=== PATIENT | female | born 1950 | race Caucasian/White ===

== ENCOUNTER → 2017-01-27 | Outpatient (CLI) | payer MEDICARE, BC ==
[~2017-01-27] MED LIST: ASPIRIN ENTERI325 MG PO; LOVASTATIN40 MG PO
--- NOTE | 2017-01-27 13:27 | Diagnostic Imaging Report ---
PROCEDURE: X-RAY CHEST, TWO VIEWS COMPARISON: 07/11/16 INDICATIONS: SHORTNESS OF BREATH FINDINGS: LUNGS: No consolidations or edema. PLEURA: No effusions or pneumothorax. HEART \T\ MEDIASTINUM: The heart is within normal size-limits. Aorta is tortuous. BONES \T\ SOFT TISSUES: No acute findings. Degenerative changes of the thoracic spine. CONCLUSION: No acute thoracic abnormality. Dictated by: Shane Oconnell M.D. on 01/27/2017 at 13:36 Electronically approved by: Shane Oconnell M.D. on 01/27/2017 at 13:36
== END ==
LOC: RAD 12:58
DX: R06.02 Shortness of breath (principal)
CPT/HCPCS: 71020

== ENCOUNTER → 2017-02-20 | Outpatient (CLI) | payer MEDICARE, BC ==
--- NOTE | 2017-02-20 16:51 | Diagnostic Imaging Report ---
PROCEDURE:X-RAY RIGHT HEEL COMPARISON:None. INDICATIONS:SWELLING AND PAIN IN RIGHT HEEL FINDINGS: Normal mineralization. No acute fracture or dislocation. Joint spaces are within normal limits. Small dorsal and plantar calcaneal enthesophytes. Mild soft tissue swelling of the plantar heel. CONCLUSION: No acute osseous abnormality. Mild soft tissue swelling of the plantar hindfoot. Dictated by: Shane Oconnell M.D. on 02/20/2017 at 16:59 Electronically approved by: Shane Oconnell M.D. on 02/20/2017 at 16:59
== END ==
LOC: RAD 16:02
DX: M79.89 Other specified soft tissue disorders (principal); S90.821A Blister (nonthermal), right foot, initial encounter

== ENCOUNTER → 2017-04-25 | Day surgery (SDC) | payer MEDICARE, BC ==
[2017-04-24 11:14] LABS: BASOPHILS % 0.4 % (0.0-1.0); EOSINOPHILS # (AUTO) 0.1 (0.0-0.4); EOSINOPHILS % 1.8 % (0.0-6.0); HEMATOCRIT 42.3 % (34.2-44.1); LYMPHOCYTES # (AUTO) 1.5 (1.0-3.2); LYMPHOCYTES % 21.8 % (18.0-39.1); MEAN CORPUSCULAR HEMOGLOBIN 29.4 pg (28-32); MEAN CORPUSCULAR HGB CONC 33.1 g/dL (31-35); MEAN CORPUSCULAR VOLUME 88.7 fL (81-99); MONOCYTES # (AUTO) 0.6 (0.2-0.8); MONOCYTES % 8.9 % (4.4-11.3); NEUTROPHILS # (AUTO) 4.7 (2.1-6.9); NEUTROPHILS % 66.8 % (38.7-80.0); PLATELET COUNT 210 x10e3/uL (140-360); RED BLOOD COUNT 4.77 x10e6/uL (3.6-5.1); RED CELL DISTRIBUTION WIDTH 14.2 % (11.7-14.4)
--- NOTE | 2017-04-24 12:03 | Diagnostic Imaging Report ---
PROCEDURE: Frontal and lateral views of the chest. COMPARISON: Chest 2 views 01/27/2017. INDICATIONS: PREOPERATIVE CHEST XRAY FOR FOOT SURGERY FINDINGS: Lines/tubes: None. Lungs: The lungs are well inflated and clear. There is no evidence of pneumonia or pulmonary edema. Pleura: There is no pleural effusion or pneumothorax. Heart and mediastinum: The heart and the mediastinum are normal. Bones: No acute bony abnormality. Degenerative changes of the thoracic spine. IMPRESSION: No acute radiographic abnormality. Dictated by: Sergio Vyas M.D. on 04/24/2017 at 12:03 Electronically approved by: Sergio Vyas M.D. on 04/24/2017 at 12:03
[~2017-04-25] MED LIST changes: +BUPIVACAINE HCL 0.5% INJ 30 ML VIAL INJ ONE; +CEFAZOLIN SOD 2 GM/D5W 50ML 50 ML IV ONE; +DEXAMETHASONE SOD PHOS INJ 4 MG/ML VIAL ONE; +EPHEDRINE SULFATE INJ 50 MG/10 ML SYR ONE; +FENTANYL CITRATE/PF 100MCG/2 ML INJ ONE; +GLYCOPYRROLATE INJ 1MG/ 5 ML SYR ONE; +KETOROLAC TROMETHAMINE 30 MG/ML VIAL ONE; +LEXAPRO10 MG PO; +LIDOCAINE HCL 2% LOCAL INJ 5 ML SDV VIAL INJ ONE; +MIDAZOLAM HCL 2 MG/2 ML VIAL ONE; +MORPHINE SULFATE 2 MG/ML SYR ONE; +NEOSTIGMINE 1 MG/ML 10ML VIAL ONE; +NEOSTIGMINE 5 MG/5ML SYR ONE; +ONDANSETRON HCL INJ 2 MG/ML VIAL ONE; +PROPOFOL IV EMULSION 10 MG/ML 20 ML VIAL ONE; +ROCURONIUM BROMIDE 10 MG/ML 5ML VIAL ONE; +SEVOFLURANE INHAL SOLN 250 ML PEN BTL ONE; +WELLBUTRIN SR150 MG
--- OUTSIDE RECORDS SUMMARY | 2017-04-25 06:32 | XMS REPORT ---
Author [facility] Address Unknown Phone Unavailable Care Team Providers Care Luster Applicator Name Role Phone GORDON NORTON Unavailable Unavailable AB RAMIREZ Unavailable Unavailable Problems This patient has no known problems. Allergies, Adverse Reactions, Alerts This patient has no known allergies or adverse reactions. Medications This patient has no known medications. Results Test Description Test Time Test Comments Text Results Atomic Results Result Comments CHEST 2 VIEWS [place] [address] Patient Name: SAEED ORTEGA MR #: [id number] : 1950 Age/Sex: 66/F Req #: [id number] Adm Physician: Ordered by: MARIE PIERRE MD Report #: [id number] Location: OR Room/Bed: Procedure: [id number] DX/CHEST 2 VIEWS Exam Date: 04/24/17 Exam Time: 1145 REPORT STATUS: Signed PROCEDURE: Frontal and lateral views of the chest. COMPARISON: Chest 2 views 01/27/2017. INDICATIONS: PREOPERATIVE CHEST XRAY FOR FOOT SURGERY FINDINGS: Lines/tubes: None. Lungs: The lungs are well inflated and clear. There is no evidence of pneumonia or pulmonary edema. Pleura: There is no pleural effusion or pneumothorax. Heart and mediastinum: The heart and the mediastinum are normal. Bones: No acute bony abnormality. Degenerative changes of the thoracic spine. IMPRESSION: No acute radiographic abnormality. Dictated by: Chuck Biswas M.D. on 04/24/2017 at 12:03 Electronically approved by: Chuck Biswas M.D. on 04/24/2017 at 12:03 Dictated By: CHUCK BISWAS MD 120 COPY TO: MARIE PIERRE MD HEEL RT [place] [address] Patient Name: SAEED ORTEGA MR #: [id number] : 1950 Age/Sex: 66/F Req #: [id number] Adm Physician: Ordered by: AB RAMIREZ MD Report #: [id number] Location: [facility] Room/Bed: Procedure: [id number] DX/ HEEL RT Exam Date: 02/20/17 Exam Time: 1610 REPORT STATUS: Signed PROCEDURE: X-RAY RIGHT HEEL COMPARISON: None. INDICATIONS: SWELLING AND PAIN IN RIGHT HEEL FINDINGS: Normal mineralization. No acute fracture or dislocation. Joint spaces are within normal limits. Small dorsal and plantar calcaneal enthesophytes. Mild soft tissue swelling of the plantar heel. CONCLUSION: No acute osseous abnormality. Mild soft tissue swelling of the plantar hindfoot. Dictated by: Shane Johnson M.D. on 02/20/2017 at 16:59 Electronically approved by: Shane Johnson M.D. on 02/20/2017 at 16:59 Dictated By: SHANE JOHNSON MD 039 Transcribed By: JOSELINE on 02/20/171658 COPY TO: AB RAMIREZ MD CHEST 2 VIEWS [place] [id number] [place] [address] Patient Name: SAEED ORTEGA MR #: [id number] : 1950 Age/Sex: 66/F Req #: [id number] Adm Physician: Ordered by: AB RAMIREZ MD Report #: [id number] Location: [facility] Room/Bed: Procedure: [id number] DX/CHEST 2 VIEWS Exam Date: 01/27/17 Exam Time: 1310 REPORT STATUS: Signed PROCEDURE: X-RAY CHEST, TWO VIEWS COMPARISON: 07/11/16 INDICATIONS: SHORTNESS OF BREATH FINDINGS: LUNGS: No consolidations or edema. PLEURA: No effusions or pneumothorax. HEART T MEDIASTINUM: The heart is within normal size- limits. Aorta is tortuous. BONES T SOFT TISSUES: No acute findings. Degenerative changes of the thoracic spine. CONCLUSION: No acute thoracic abnormality. Dictated by: Shane Johnson M.D. on at 13:36 Electronically approved by: Shane Johnson M.D. on at 13:36 Dictated By: SHANE JOHNSON MD 1336 Transcribed By: JOSELINE on 01/27/17 1336 COPY TO: AB RAMIREZ MD
--- NOTE | 2017-04-25 15:52 | Operative Report ---
DATE OF PROCEDURE: April 25, 2017 PREOPERATIVE DIAGNOSES 1. Secondary tear of Achilles tendon. 2. Retrocalcaneal exostosis. 3. Equinus. POSTOPERATIVE DIAGNOSES 1. Secondary tear of Achilles tendon. 2. Retrocalcaneal exostosis. 3. Equinus. PROCEDURES 1. Secondary repair of Achilles tendon. 2. Excision of retrocalcaneal exostosis. 3. Gastrocnemius recession. 4. Application of posterior splint. 5. Use of human allograft. 6. Use of intraoperative fluoroscopy. PATHOLOGY: None. ANESTHESIA: General anesthetic with a local block consisting of 10 mL of 0.5 Marcaine plain given postop. COMPLICATIONS: None. CONDITION: Stable. MATERIALS 1. A DemandPointAnchor kit, reference [id number]. 2. AlloWrap 2 x 4 to repair the Achilles tendon, lot number [id number], date of expiration March 06, 2018. PROCEDURE IN DETAIL: Under mild sedation, the patient was brought to the operating room and placed on the operating table in the supine position. Following IV sedation, anesthesia was obtained with general anesthetic. At this point, the foot was prepped and draped in the usual aseptic manner. The right foot was lowered to the table after the patient was put in a prone position. Gastrocnemius recession. Attention was directed to the level of the gastrocnemius aponeurosis where a linear incision was made that measured approximately 4 cm. It was deepened via sharp and blunt dissection, taking care to retract or cauterize neurovascular structures as necessary. It was deepened down to the level of the gastrocnemius aponeurosis. Once this was isolated, a Saeid type of lengthening was then performed. There was noted to be a decrease in the contracture and lengthening through and through. The area was then flushed with copious amount of normal sterile saline solution. Secondary repair of gastrocnemius recession. Attention was then directed to the insertion of the gastrocnemius intracalcaneus where a linear incision was made overlying the area. The incision was deepened via sharp and blunt dissection, taking care to retract or cauterize neurovascular structures as necessary. It was deepened down to the level of the Achilles tendon. Once the Achilles tendon was visualized, it was then removed from its insertion. At this point, there was noted to be large amounts of osteophytes, some embedded in between the tendon and at the insertion into the Achilles tendon. Utilizing a combination of osteotomes, bone rongeur, and power rasp, all nonviable tissue was removed from the mucoid area of the tendon down to clean, viable tissue. The area was then flushed with copious amount of normal sterile saline solution. The area was then repaired intumulating the area of the tendon with 3-0 Vicryl. At this point, the exostosis was fully removed. The tendon was reattached back into the bone with a SonicAnchor. There was noted to be adequate compression clinically and with intraop fluoroscopy. The most distal aspect had to be packed because there was a bone cyst down to the area. It was packed with bone. This was confirmed clinically and with intraop fluoroscopy. The areas were then flushed with copious amounts of normal sterile saline solution. Human allograft was then inserted into the area in order to augment the repair of the tendon and to promote healing and to prevent adhesions. The area was then closed, closing the deepest layer with 3-0 Vicryl, 4-0 Vicryl and 4-0 nylon. A clean dressing was applied consisting of Adaptic ointment, 4 x 4's, Kerlix, and Webril. A posterior splint was applied and was secured utilizing an Yao bandage. The tourniquet was deflated. There was noted to be hyperemic response to all the digits. The patient tolerated the procedure and anesthesia well without complications. She was transported to the recovery room with vital signs stable and vascular status intact to both feet. The patient will be discharged home when she meets criteria. She was given instructions to be strictly nonweightbearing, to ice and elevate the foot while at rest, to follow up with me in the office, and to call the office if any questions, concerns or any problems arise. Job#: [id number]
== END | disposition home or self-care (01) ==
LOC: OR 06:30
PROVIDERS: ATTEND Podiatrist Foot & Ankle Surgery
DX: M25.774 Osteophyte, right foot (principal); M66.871 Spontaneous rupture of other tendons, right ankle and foot; M24.571 Contracture, right ankle; E66.01 Morbid (severe) obesity due to excess calories; F32.9 Major depressive disorder, single episode, unspecified; Z01.810 Encounter for preprocedural cardiovascular examination; Z01.812 Encounter for preprocedural laboratory examination; Z01.818 Encounter for other preprocedural examination
CPT/HCPCS: 27654; 27687; 28118; 36415; 71046; 76001; 85025; 93005; J1100; J1885; J2001; J2250; J2270; J2405; J2710; Q4150

== ENCOUNTER 2018-11-29 10:00 | Outpatient (RCR) | payer MEDICARE, BC ==
[~2018-11-29 10:00] MED LIST changes: -BUPIVACAINE HCL 0.5% INJ 30 ML VIAL INJ ONE; -CEFAZOLIN SOD 2 GM/D5W 50ML 50 ML IV ONE; -DEXAMETHASONE SOD PHOS INJ 4 MG/ML VIAL ONE; -EPHEDRINE SULFATE INJ 50 MG/10 ML SYR ONE; -FENTANYL CITRATE/PF 100MCG/2 ML INJ ONE; -GLYCOPYRROLATE INJ 1MG/ 5 ML SYR ONE; -KETOROLAC TROMETHAMINE 30 MG/ML VIAL ONE; -LIDOCAINE HCL 2% LOCAL INJ 5 ML SDV VIAL INJ ONE; -MIDAZOLAM HCL 2 MG/2 ML VIAL ONE; -MORPHINE SULFATE 2 MG/ML SYR ONE; -NEOSTIGMINE 1 MG/ML 10ML VIAL ONE; -NEOSTIGMINE 5 MG/5ML SYR ONE; -ONDANSETRON HCL INJ 2 MG/ML VIAL ONE; -PROPOFOL IV EMULSION 10 MG/ML 20 ML VIAL ONE; -ROCURONIUM BROMIDE 10 MG/ML 5ML VIAL ONE; -SEVOFLURANE INHAL SOLN 250 ML PEN BTL ONE
== END 2018-12-06 ==
LOC: PT 10:00
PROVIDERS: ATTEND Neurological Surgery
DX: M48.062 Spinal stenosis, lumbar region with neurogenic claudication (principal); M53.86 Other specified dorsopathies, lumbar region; M62.81 Muscle weakness (generalized)
CPT/HCPCS: 97139

== ENCOUNTER 2019-01-05 13:00 | Emergency (ER) | payer MEDICARE, BC ==
[~2019-01-05] VITALS: Ht 162.6 cm; Wt 120.7 kg
[2019-01-05] MEDS ORDERED: DEXAMETHASONE SOD PHOS 10 MG/1 ML VIAL IM ONE (13:30)
[2019-01-05] MEDS ORDERED: KETOROLAC TROMETHAMINE 60 MG/2 ML VIAL IM ONE (13:30)
== END 2019-01-05 14:10 | disposition home or self-care (01) ==
LOC: ER 13:00
DX: M79.651 Pain in right thigh (principal); M54.31 Sciatica, right side; E78.5 Hyperlipidemia, unspecified
CPT/HCPCS: 99283; J1100; J1885

== ENCOUNTER → 2019-05-09 | Outpatient (CLI) | payer MEDICARE, BC ==
--- NOTE | 2019-05-09 14:16 | Diagnostic Imaging Report ---
EXAM: SP LUMBAR, COMPLETE MIN 4VW DATE: 05/09/2019 12:00 AM INDICATION: Fall COMPARISON: None FINDINGS: Bony mineralization is diffusely decreased. There are moderate compression deformities involving the L1 and L3 vertebral body without significant retropulsion. Mild compression deformity noted of the superior endplate of the T12 vertebral body. No other acute fracture or dislocation is appreciated. There are advanced multilevel degenerative changes of the lumbar spine with intervertebral disc space narrowing, uncovertebral spurring, and facet arthropathy. No focal lytic or blastic abnormality is identified. IMPRESSION: Mild/moderate compression deformities involving the T12, L1, and L3 vertebral bodies of unknown chronicity. Advanced multilevel degenerative changes of the lumbar spine. Signed by: Dr. Faustino Cho MD on 05/09/2019 2:12 PM
--- NOTE | 2019-05-09 14:20 | Diagnostic Imaging Report ---
EXAM: HIPS BILAT 3-4VWS (+/- PELVIS) DATE: 05/09/2019 12:00 AM INDICATION: Fall COMPARISON: None FINDINGS: There is no evidence for acute fracture or dislocation. No focal lytic or blastic abnormality is identified. There are degenerative changes of the bilateral hips with moderate joint space narrowing and associated subchondral sclerosis. Osteophyte production noted along the greater trochanters bilaterally. There are degenerative changes of the lumbosacral spine and bilateral SI joints. Phleboliths are noted within the pelvis. The surrounding soft tissues are unremarkable. IMPRESSION: No acute radiographic abnormality identified within the pelvis or bilateral hips. Degenerative changes as above. Signed by: Dr. Faustino Cho MD on 05/09/2019 2:16 PM
== END ==
LOC: RAD 12:04
DX: M25.552 Pain in left hip (principal); M25.551 Pain in right hip; M54.5 Low back pain; W19.XXXA Unspecified fall, initial encounter
CPT/HCPCS: 72110; 73522

== ENCOUNTER → 2019-05-14 | Outpatient (CLI) | payer MEDICARE, BC ==
--- NOTE | 2019-05-14 14:40 | Diagnostic Imaging Report ---
Examination: MRI SPINE LUMBAR WO CONTRAST History: Fall 5 weeks ago Comparison studies: None Technique: Sagittal, coronal and axial T2 , sagittal T1 and STIR; axial spin density oblique. Findings: Number of lumbar vertebral bodies: Five. Alignment: Normal lordosis. No scoliosis. Soft tissues: No T2 hyperintense inflammatory changes. Posterior paraspinal soft tissues and muscles: No abnormality. Lower thoracic cord: Normal in signal and morphology. The tip of the conus is at T12-L1. Cauda equina: A 1.1 cm ovoid shaped T1 hypointense and T2 and STIR hyperintense lesion in the left anterior thecal sac at L1 is identified and most probably represents an arachnoid cyst. No arachnoiditis. Vertebrae: No infection or neoplasm. Acute compression fracture of the L1 vertebral body with approximately 30% height loss. No retropulsed bone fragment into the anterior epidural space. There is chronic compression fracture of the L3 vertebral body. Lateral bridging osteophytes are demonstrated throughout the lower thoracic and upper lumbar vertebrae. Degenerative changes: T12-L1: Mild diffuse disc bulge and bilateral facet arthropathy result in mild bilateral neural foraminal narrowing. No canal stenosis. L1-L2: Asymmetric to the left disc bulge and bilateral facet arthropathy result in mild bilateral neural foraminal narrowing and mild canal stenosis. L2-L3: Diffuse disc bulge, ligamentum flavum thickening and bilateral facet arthropathy result in mild bilateral neural foraminal narrowing and mild canal stenosis. L3-L4: Grade 1 anterolisthesis without pars defect. Uncovering of a diffuse disc bulge, prominent epidural fat and bilateral facet arthropathy result in mild left neural foraminal narrowing and mild canal stenosis. No right foraminal narrowing. L4-L5: Grade 1 anterolisthesis without pars defect. Uncovering of a diffuse disc bulge and bilateral facet arthropathy result in moderate bilateral neural foraminal narrowing. Ovoid shaped 1.3 cm (craniocaudal dimension) lesion in the right anterior epidural space posterior to the L4 vertebral body could represent either a disc extrusion and less likely a schwannoma. Prior decompressive laminectomy. L5-S1: Diffuse disc bulge, ligamentum flavum thickening and bilateral facet arthropathy result in moderate right and mild left neural foraminal narrowing. No canal stenosis. IMPRESSION: Acute compression fracture of the L1 vertebral body and acute fracture of the left T12 rib. Degenerative changes from T12-L1 through L5-S1 with mild canal stenosis from L1-L2 through L3-L4, moderate bilateral foraminal narrowing at L4-L5 and moderate right foraminal narrowing at L5-S1. Presumed superior right central disc extrusion at L4-L5, as detailed above Prior decompressive laminectomy at L4-L5. Degenerative grade 1 anterolisthesis of L3 on L4 and L4-L5 Signed by: Dr. Ingrid Jacob M.D. on 05/14/2019 2:37 PM
== END ==
LOC: MRI 11:42
DX: M54.5 Low back pain (principal); W19.XXXA Unspecified fall, initial encounter
CPT/HCPCS: 72148

== ENCOUNTER 2019-05-15 10:07 | Observation (INO) | payer MEDICARE, BC ==
[~2019-05-15] VITALS: Ht 162.6 cm; Wt 97.1 kg
[2019-05-15 11:28] VITALS: BP 162/76
--- NOTE | 2019-05-15 11:28 | NUR ---
Received patient direct admit from home with primary diagnoses of Fracture of L1 and Left 12th rib. Transported via wheelchair to room. Respiration even and unlabored. Notified IR as consult ordered by Dr. Alcantara. Patient ambulates with pain.
[2019-05-15 11:30] VITALS: BP 162/76
[2019-05-15 12:25] LABS: BASOPHILS % 0.5 % (0.0-1.0); EOSINOPHILS # (AUTO) 0.1 (0.0-0.4); EOSINOPHILS % 1.8 % (0.0-6.0); HEMATOCRIT 43.9 % (34.2-44.1); HEMOGLOBIN 14.7 g/dL (12.0-16.0); LYMPHOCYTES # (AUTO) 1.4 (1.0-3.2); LYMPHOCYTES % 24.5 % (18.0-39.1); MEAN CORPUSCULAR HEMOGLOBIN 29.5 pg (28-32); MEAN CORPUSCULAR HGB CONC 33.5 g/dL (31-35); MEAN CORPUSCULAR VOLUME 88.2 fL (81-99); MONOCYTES # (AUTO) 0.5 (0.2-0.8); NEUTROPHILS # (AUTO) 3.6 (2.1-6.9); PLATELET COUNT 261 x10e3/uL (140-360); RED BLOOD COUNT 4.98 x10e6/uL (3.6-5.1); RED CELL DISTRIBUTION WIDTH 12.7 % (11.7-14.4)
[2019-05-15] MEDS: HYDROMORPHONE 2MG/ML 2 MG/ML ML IV PRN ×3 (12:27→21:00)
[2019-05-15 13:03] LABS: ALANINE AMINOTRANSFERASE 20 IU/L (0-55); ALBUMIN 3.6 g/dL (3.5-5.0); ALBUMIN/GLOBULIN RATIO 1.1 (0.8-2.0); ALKALINE PHOSPHATASE 135 IU/L (40-150); BLOOD UREA NITROGEN 9 mg/dL (7-26); BUN/CREATININE RATIO 12 (6-25); CALCIUM 9.3 mg/dL (8.4-10.2); CARBON DIOXIDE 24 mmol/L (22-29); CHLORIDE 106 mmol/L (98-107); CREATININE, SERUM 0.78 mg/dL (0.57-1.11); EST GLOMERULAR FILTRATION RATE > 60 ML/MIN (60-); GLUCOSE 96 mg/dL (74-118); SODIUM 140 mmol/L (136-145)
[2019-05-15 16:30] VITALS: BP 121/64
[2019-05-15] MEDS ORDERED: CEFAZOLIN SOD 1 GM VIAL IV ONE (16:30)
[2019-05-15 17:30] LABS: INR 0.96; PROTHROMBIN TIME 13.4 seconds (11.9-14.5)
[2019-05-15 17:31] LABS: PARTIAL THROMBOPLASTIN TIME 27.5 seconds (23.8-35.5)
--- NOTE | 2019-05-15 19:03 | NUR ---
Report given to police shift commander. Respiration even and unlabored without SOB. call light in reach.
[2019-05-15 21:00] VITALS: BP 119/58
[2019-05-15] MEDS: BUPROPION HCL SR 150 MG TAB PO SCH (21:00)
[2019-05-15] MEDS: ESCITALOPRAM OXALATE 10 MG TAB PO SCH (21:00)
--- NOTE | 2019-05-15 21:00 | NUR ---
PATIENT IS RESTING IN BED IN STABLE CONDITION, NO SIGNS OF RESPIRATORY DISTRESS NOTED. PATIENT VOICED PAIN AT A LEVEL OF 6 AND WAS MEDICATED ORDERED. BED IS IN LOWEST POSITION, BOTH SIDE RAILS ARE UP, CALL LIGHT IS WITHIN EASY REACH, WILL CONTINUE TO MONITOR.
[2019-05-16] VITALS (8 sets, daily range): BP systolic 106–126; BP diastolic 57–73
[2019-05-16] MEDS: HYDROMORPHONE 2MG/ML 2 MG/ML ML IV PRN ×2 (01:35→05:35)
--- NOTE | 2019-05-16 07:00 | NUR ---
Received patient lying in bed with eyes open. Respiration even and unlabored without SOB. Call light in reach.
[2019-05-16] MEDS: ACETAMINOPHEN 325 MG TAB PO PRN (10:17)
[2019-05-16] MEDS: HYDROMORPHONE 1MG/1ML INJ IV PRN ×2 (12:24→20:40)
--- NOTE | 2019-05-16 15:33 | NUR ---
Patient is transported for radiology at this time.
--- NOTE | 2019-05-16 16:03 | Diagnostic Imaging Report ---
EXAMINATION: CHEST 2 VIEWS INDICATION: Preop ^preop ^[id number] ^1542 ^Y COMPARISON: 04/24/2017. FINDINGS: TUBES and LINES: None. LUNGS: Lungs are well inflated. Mild chronic appearing changes in the lungs. There is no evidence of pneumonia or pulmonary edema. PLEURA: No pleural effusion or pneumothorax. HEART AND MEDIASTINUM: The cardiomediastinal silhouette is unremarkable. BONES AND SOFT TISSUES: No acute osseous lesion. Soft tissues are unremarkable. UPPER ABDOMEN: No free air under the diaphragm. IMPRESSION: No acute thoracic abnormality. Signed by: Dr. Emanuel Mcgrath M.D. on 05/16/2019 4:00 PM
--- NOTE | 2019-05-16 19:14 | NUR ---
Report given to shift lab technician. Respiration even and unlabored without SOB. call light in reach.
[2019-05-16] MEDS: ESCITALOPRAM OXALATE 10 MG TAB PO SCH (20:40)
[2019-05-16] MEDS: BUPROPION HCL SR 150 MG TAB PO SCH (20:40)
--- NOTE | 2019-05-16 20:40 | NUR ---
PATIENT IS RESTING IN BED IN STABLE CONDITION, NO SIGNS OF RESPIRATORY DISTRESS NOTED. PATIENT VOICED PAIN AT A LEVEL OF 5 AND WAS MEDICATED ORDERED. PATIENT IS AWARE OF NPO AFTER MIDNIGHT FOR PROCEDURE TOMORROW. BED IS IN LOWEST POSITION, BOTH SIDE RAILS ARE UP, CALL LIGHT IS WITHIN EASY REACH, WILL CONTINUE TO MONITOR.
--- NOTE | 2019-05-16 22:30 | NUR ---
RECEIVED CALL FROM IR REGARDING PATIENT'S PROCEDURE IS BEING PUSHED BACK TO 2:00 PM TOMORROW. PATIENT WAS INFORMED.
[2019-05-17] VITALS (7 sets, daily range): BP systolic 101–129; BP diastolic 59–79
--- NOTE | 2019-05-17 07:30 | NUR ---
PT UP IN BED AWAKE,PAIN LEVEL 3.
[2019-05-17] MEDS ORDERED: LIDOCAINE HCL 1% LOCAL INJ 20 ML VIAL ONE (07:34)
[2019-05-17] MEDS ORDERED: IOPAMIDOL 300MG/ML 100 ML INFUS..BTL IV ONE (07:35)
[2019-05-17] MEDS: HYDROMORPHONE 1MG/1ML INJ IV PRN ×4 (07:56→23:06)
[2019-05-17] MEDS ORDERED: CEFAZOLIN SOD 1 GM/NS 50ML 50 ML IV ONE (09:00)
--- NOTE | 2019-05-17 10:15 | NUR ---
ASSESSMENT: Spiritual concern Pt worried about illness and family. Pt states she is having a procedure this afternoon. Pt requested prayer for health and family. Intervention: Provided hospitality, empathic listening and prayer. Provided information on how to reach performance makeup artist, if needed. Outcome: Pt expressed appreciation for support. Will follow as able. KARINA RAMIREZ Glass Installer Technician Spiritual Care Department O: [phone]
[2019-05-17] MEDS ORDERED: LACTATED RINGER'S 1,000 ML ONE (13:04)
[2019-05-17] MEDS ORDERED: CEFAZOLIN SOD 1 GM/NS 50ML 0 ML IV ONE (13:08)
--- NOTE | 2019-05-17 13:45 | NUR ---
PT TRANSPORTED TO OR VIA BED
[2019-05-17] MEDS ORDERED: HYDRALAZINE HCL 20 MG/ML VIAL ONE (15:58)
--- NOTE | 2019-05-17 16:55 | NUR ---
PT RETURNED TO ROOM ,DRSG TO MID BACK CD&I,BP 127/60,72,97.2,18.96%.BEDREST TILL 1900
--- NOTE | 2019-05-17 17:08 | Diagnostic Imaging Report ---
HISTORY: L1 vertebral compression fracture and severe lower back pain despite conservative therapy. Fluoroscopy Time: 10.3 min. Reference Air Kerma (Ka, r): 339 mGy. PROCEDURE: Following informed written consent, general endotracheal anesthesia was performed by the anesthesiology service and the patient was placed in a prone position on the angiographic table. The lower back was prepped and draped in the usual sterile manner. 2% lidocaine was given locally for anesthesia. Using a bilateral transpedicular approach and fluoroscopic guidance, the 11-gauge access needles were placed into the L1 vertebral body. Tracts were drilled through each cannula into the L1 vertebral body. Vertebral augmentation balloons were placed through the access cannulas and inflated bilaterally. The balloons were deflated, removed and a total of 7.5 cc of methyl methacrylate was infused into the L1 vertebral body under constant fluoroscopic visualization. The cannulas were then removed and the access sites closed with Dermabond. Sterile dressings were applied and the patient was transferred from the department in stable condition. There were no immediate complications. FINDINGS: Images obtained during the procedure show the access needles, cannulas and balloons in expected positions within the L1 vertebral body. Following methacrylate infusion, adequate distribution is seen within the L1 vertebral body without extravasation. IMPRESSION: 1. Technically successful L1 percutaneous vertebral augmentation. No immediate complications. Signed by: Dr. Faustino Cho MD on 05/17/2019 5:05 PM
[2019-05-17] MEDS ORDERED: LIDOCAINE HCL 2% LOCAL INJ 5 ML SDV VIAL INJ ONE (17:23)
[2019-05-17] MEDS ORDERED: PROPOFOL IV EMULSION 10 MG/ML 20 ML VIAL ONE (17:23)
[2019-05-17] MEDS ORDERED: ONDANSETRON HCL INJ 2MG/ML 2ML 2 MG/ML VIAL ONE (17:23)
[2019-05-17] MEDS ORDERED: SEVOFLURANE INHAL SOLN 250 ML PEN BTL ONE (17:23)
[2019-05-17] MEDS ORDERED: KETOROLAC TROMETHAMINE 30 MG/ML VIAL ONE (17:23)
[2019-05-17] MEDS ORDERED: ROCURONIUM BROMIDE 10 MG/ML 5ML VIAL IV ONE (17:23)
[2019-05-17] MEDS ORDERED: DEXAMETHASONE SOD PHOS INJ 4 MG/ML VIAL ONE (17:23)
[2019-05-17] MEDS ORDERED: MIDAZOLAM HCL 2 MG/2 ML VIAL ONE (17:40)
[2019-05-17] MEDS ORDERED: FENTANYL CITRATE/PF 100MCG/2 ML INJ ONE (17:40)
[2019-05-17] MEDS: ACETAMINOPHEN 325 MG TAB PO PRN (21:18)
[2019-05-17] MEDS: ESCITALOPRAM OXALATE 10 MG TAB PO SCH (21:18)
[2019-05-17] MEDS: BUPROPION HCL SR 150 MG TAB PO SCH (21:18)
--- NOTE | 2019-05-17 23:56 | NUR ---
SPOKE TO DR. Jamel RAMIREZ AT THIS TIME REGARDING PATIENT C/O HEADACHE. NEW ORDER FOR PRN IBUPROFEN RECEIVED.
[2019-05-18] VITALS: BP 121/59
[2019-05-18] MEDS ORDERED: IBUPROFEN 400 MG TAB PO PRN
[2019-05-18 04:00] VITALS: BP 102/59
--- NOTE | 2019-05-18 07:20 | NUR ---
PT IN BED SLEEPING NO DISTRESS NOTED ,NO S/S DISCOMFORT
[2019-05-18 08:36] VITALS: BP 96/51
[2019-05-18 09:22] VITALS: BP 96/51
[2019-05-18 12:55] VITALS: BP 107/62
--- NOTE | 2019-05-18 14:28 | NUR ---
pt discharged home iv dcd without rednesor swelling,instructions given copy on chart.transported to [facility] w/c
--- NOTE | 2019-06-20 04:47 | Discharge Summary ---
CHIEF COMPLAINT: Back pain. FINAL DIAGNOSES: Fractured left compression fracture L1 and T12. DISPOSITION: Home. HOSPITAL COURSE: A 68-year-old female with known history of major depressive disorder, osteoarthritis, lymphedema. She sustained a fall about one week ago, injured her low back, has ongoing severe back pain. Evaluation of her spine was conducted few days ago as an outpatient. Findings revealed a compression fracture of T12, L3. The patient is now being admitted electively for kyphoplasty. She was demonstrating marked pain in distal lower back. As stated, admission was made regarding severe back pain, compression fracture of T12, L3, extreme obesity, osteoarthritis, major depressive disorder. We will be addressing IV analgesic issues. Home medications will continue. We will be discussing procedures with Interventional Radiology. Interventional Radiology was consulted. The patient underwent kyphoplasty by Interventional Radiology. L1 percutaneously with tubal augmentation. No immediate complications were noted. The patient was on the Med-Surg floor with even regular diet. Initially, she was complaining of pain to the low back. No acute distress. She was given IV fluids, medications for pain management. Her lab studies were being reviewed as well. She underwent evaluation by Interventional Radiology, was set up for the kyphoplasty. The patient with remaining stable, the procedure was conducted, feeling much better postprocedure. The pain medication had been reduced and she was cleared for discharge home in stable condition. IMAGING: Chest x-ray shows no acute thoracic abnormality. The kyphoplasty was a successful procedure. LABORATORY STUDIES: Shows a CBC to be unremarkable. Chemistry studies, unremarkable. As mentioned, she was able to be discharged home in stable condition. She will be maintained on her current diet. No equipments or supplies were necessary. No drains or [place] was needed. Activity level as directed by myself as well as by Interventional Radiology. The patient will continue on Wellbutrin SR 150 daily, Lexapro 20 mg p.o. daily. The patient will be following back up with me in my office in the next 2-3 weeks, following back with Interventional Radiology as instructed. The patient was instructed to call my office sooner if she develops any recurrence of uncontrolled pain or any other complaints or concerns. Dictated by ROSALINA Conley MD YOLANDA Uribe/SAI /[id number]
== END 2019-05-18 14:15 | disposition home or self-care (01) ==
LOC: MED/SURG 10:07
DX: S32.019A Unspecified fracture of first lumbar vertebra, initial encounter for closed fracture (principal); S32.039A Unspecified fracture of third lumbar vertebra, initial encounter for closed fracture; M54.5 Low back pain; S22.089A Unspecified fracture of T11-T12 vertebra, initial encounter for closed fracture; S22.32XA Fracture of one rib, left side, initial encounter for closed fracture; M19.90 Unspecified osteoarthritis, unspecified site; E66.01 Morbid (severe) obesity due to excess calories; F32.9 Major depressive disorder, single episode, unspecified; W19.XXXA Unspecified fall, initial encounter; Z68.36 Body mass index [BMI] 36.0-36.9, adult
CPT/HCPCS: 22514; 36415; 71046; 74470; 80053; 85025; 85610; 85730; 93005; C1727; G0378 ×4; J0360; J0690; J1100; J1170 ×4; J1885; J2001 ×2; J2250; J2405; J2704; J3010; J7121; Q9967

== ENCOUNTER → 2020-01-15 | Outpatient (CLI) | payer MEDICARE, BC | LOC: RAD 11:39 | DX: M25.551 Pain in right hip (principal); M54.5 Low back pain; Z91.81 History of falling | CPT/HCPCS: 72110 ==

== ENCOUNTER → 2020-12-22 | Outpatient (CLI) | payer MEDICARE, BC | LOC: RAD 12:38 | DX: M25.552 Pain in left hip (principal); M25.551 Pain in right hip; M25.562 Pain in left knee; M25.561 Pain in right knee | CPT/HCPCS: 73522 ==

== ENCOUNTER → 2021-02-16 | Outpatient (CLI) | payer MEDICARE, BC | LOC: RAD 12:32 | DX: M79.605 Pain in left leg (principal); M79.604 Pain in right leg | CPT/HCPCS: 93925; 93970 ==

== ENCOUNTER → 2022-06-07 | Outpatient (CLI) | payer MEDICARE, BC | LOC: RAD 09:31 | PROVIDERS: ATTEND Internal Medicine | DX: R06.02 Shortness of breath (principal) | CPT/HCPCS: 71046 ==

== ENCOUNTER → 2022-08-02 | Outpatient (CLI) | payer MEDICARE, BC | LOC: MRI 08:19 | PROVIDERS: ATTEND Internal Medicine | DX: M25.561 Pain in right knee (principal); M79.604 Pain in right leg ==